=== PATIENT | male | born 1950 | race Caucasian/White ===

== ENCOUNTER → 2020-10-03 | Outpatient (CLI) | payer OTHER | LOC: HEART CORB 14:17 | DX: R00.0 Tachycardia, unspecified (principal) ==

== ENCOUNTER → 2020-10-17 | Outpatient (CLI) | payer OTHER | LOC: HEART CORB 09:54 | DX: R06.00 Dyspnea, unspecified (principal); I20.8 Other forms of angina pectoris | CPT/HCPCS: 78452; 93306; A9502; J2785 ==